=== PATIENT | female | born 1960 | race African-American/Black ===

== ENCOUNTER → 2016-05-26 | Outpatient (CLI) | payer OTHER | LOC: ULTRA 10:42 | DX: E04.1 Nontoxic single thyroid nodule (principal) ==

== ENCOUNTER → 2016-06-07 | Outpatient (CLI) | payer OTHER ==
--- NOTE | ~2016-06-07 | S ---
[facility] [place] [address] SURGICAL PATH RPT PROCEDURE Name: GAEL PINEDA Room #: REG [facility]..#: [id number] Admission: 06/07/16 Date of : 64 Discharge: Report #: [id number] Path Case #: [id number] PATHOLOGY REPORT COLLECTION DATE: 06/07/2016 RECEIVED DATE: 06/07/2016 SUBMITTING PHYS: Dr. Dami Ruiz OTHER PHYS: Dr. 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 (Please see comment) COMMENT: Based on the histologic examination, the differential diagnosis includes a mixed macro- and microfollicular adenomatoid nodule (dominant nodule) in a background of nodular hyperplasia, mixed follicular adenoma or a partially sampled papillary neoplasm. Focal nuclear overlapping and possible pseudoinclusions are present; however, in a single follicular group. Please note sample represents a minute portion of a larger lesion and may not be commercial sales representative. Co-review: Dr. Domenico Campbell. Please correlate clinically and follow up as indicated. The concurrent cytology ([id number]) showed findings suggestive of an adenomatoid nodule. Please see separate report for details. (IUV:csd; d/t: 06/08/2016) PATHOLOGIST: Essie Multani M.D. REPORT ELECTRONICALLY SIGNED BY: Essie Multani M.D. DATE/TIME: 06/08/2016 15:55 * * * * * * * * * * * * GROSS PATHOLOGY: The specimen is received in formalin, labeled "Gael Pineda and left thyroid bx." Received is a 0.4 x 0.4 x 0.2 cm aggregate of red-arenas and irregular soft tissue fragments. The specimen is entirely submitted in cassette A1. (TTL; 06/07/2016) [address] [address] SURGICAL PATH RPT PROCEDURE Name: GAEL PINEDA ROXANA Room #: REG CL Eda.#: [id number] Admission: 06/07/16 Date of : 64 Discharge: Report #: [id number] Path Case #: [id number] CLINICAL HISTORY: None given INITIAL CPT CODE(S): A; 76528 Professional services performed by [facility] [address], [place] [address] Technical services performed by [facility] at [address] [place] [address], [facility] [address] [place] [address]. [facility] [address] [place] [address] PHONE: [phone] DIRECTOR: Delonte Whatley M.D. * * * END OF REPORT * * *
--- NOTE | ~2016-06-07 | CNG ---
[facility] [place] [address] CYTO-NONGYN REPORT PROCEDURE Name: GAEL PINEDA Room #: REG [facility].#: [id number] Admission: 06/07/16 Date of : 64 Discharge: Report #: [id number] Path Case #: [id number] CYTOPATHOLOGY REPORT COLLECTION DATE: 06/07/2016 RECEIVED DATE: 06/07/2016 SUBMITTING PHYS: Dr. Vinod Caballero OTHER PHYS: Dr. Dami Cade CLINICAL HISTORY: ABN thyroid. See also [id number]. SPECIMEN(S) RECEIVED: A.US guided Fine needle aspiration, Left thyroid * * * * * * * * * * * * FINAL DIAGNOSIS: A. US guided Fine needle aspiration, Left thyroid: BETHESDA CATEGORY II. SPECIMEN CONSISTS OF BENIGN FOLLICULAR CELLS, MACROPHAGES, COLLOID, AND BLOOD. 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 COMMENT: Examination shows abundant watery colloid with a mixture of macrofollicles, microfollicles, as well as hemosiderin laden macrophages. Nuclear features to suggest papillary thyroid carcinoma are not identified. Scattered rare fragments of dense colloid are present on the smears. Overall findings are suggestive of a benign adenomatoid nodule. The differential diagnosis includes a mixed follicular adenoma. Please note sample represents a minute portion of a larger lesion and may not be entirely community service representative. Clinical correlation is suggested. The concurrent biopsy tissue showed a focal papillary architecture along with nuclear overlapping and a rare pseudoinclusion. Please refer to separate report ([id number]) for complete details. (IUV:csd; d/t: 06/08/2016) PATHOLOGIST: Essie Multani M.D. REPORT ELECTRONICALLY SIGNED BY: Essie Multani M.D. DATE/TIME: 06/08/2016 15:57 * * * * * * * * * * * * GROSS PATHOLOGY: A. US guided Fine needle aspiration, Left thyroid: The specimen is labeled "Gael Pineda" and consists of four fixed slides, four air dried slides. Twenty-five mL of red fluid in Cytolyt from the needle rinse is also submitted and One ThinPrep slide and a cell block were prepared from this material. (clt 06.07.2016) [address] [address] CYTO-NONGYN REPORT PROCEDURE Name: GALE PINEDA Room #: REG CL Lindsey#: [id number] Admission: 06/07/16 Date of : 64 Discharge: Report #: [id number] Path Case #: [id number] SLATE TRIMMER(S): JENNIFER Clarke([facility]) INITIAL CPT CODE(S): A; 53732, 20684 Professional services performed by [facility] at [address] , [place] [address] Technical services performed by [facility] at [address] [place] [address], [address], [place] [address]. [facility], [address] [place] [address] PHONE: [phone] DIRECTOR: Delonte Whatley M.D. * * * END OF REPORT * * *
== END | disposition home or self-care (01) ==
LOC: ULTRA 10:18
DX: D34 Benign neoplasm of thyroid gland (principal)

== ENCOUNTER 2020-03-23 12:02 | Emergency (ER) | payer OTHER ==
[~2020-03-23] VITALS: Ht 175.3 cm; Wt 127.9 kg
[~2020-03-23 12:02] MED LIST: LIPITOR10 MG PO; LOSARTAN-HCTZ1 EAC1 PO; NAPROSYN500 MG PO; NORFLEX100 MG PO; TRAMADOL 50 MG50 MG PO
[2020-03-23 12:46] LABS: URINE BILIRUBIN NEGATIVE (Negative); URINE BLOOD 1+ (Negative); URINE CLARITY CLEAR; URINE COLOR YELLOW; URINE GLUCOSE-RANDOM* NEGATIVE (Negative); URINE KETONES NEGATIVE (Negative); URINE LEUKOCYTES-REFLEX NEGATIVE (Negative); URINE NITRITE-REFLEX NEGATIVE (Negative); URINE PROTEIN (DIPSTICK) NEGATIVE (Negative); URINE SPECIFIC GRAVITY 1.025 (1.005-1.035); URINE UROBILINOGEN 0.2 E.U./dl (0.2-1.0)
[2020-03-23 13:02] LABS: ABSOLUTE NEUTROPHILS 2.3 thou/uL (1.4-8.2); BASOPHILS 0.5 % (0.0-2.0); EOSINOPHILS 0.8 % (0.0-3.0); HEMATOCRIT 43.7 % (37.0-47.0); HEMOGLOBIN 14.3 gm/dL (12.0-15.0); LYMPHOCYTES 40.1 % (24.0-44.0); MCH 30.9 pg (26.0-34.0); MCHC 32.7 g/dL (28.0-37.0); MCV 94.4 fL (80.0-100.0); PLATELET COUNT 231 thou/uL (150-400); POLYS 50.6 % (36.0-66.0); RBC 4.63 mil/uL (4.20-5.00); RDW 14.6 % (10.5-14.5); WBC 4.6 thou/uL (4.0-11.0)
[2020-03-23] MEDS ORDERED: COZAAR 50 MG TA50 MG PO (13:03)
[2020-03-23] MEDS ORDERED: HYDROCHLOROTHIA25 M2 PO (13:03)
[2020-03-23 13:09] LABS: CALCIUM 9.2 mg/dL (8.5-10.1); CREATININE 1.1 mg/dL (0.6-1.0); POTASSIUM 3.9 mmol/L (3.5-5.1)
[2020-03-23 13:10] LABS: BACTERIA-REFLEX 1-9 Few /HPF (None Seen); CASTS None Seen /LPF (None Seen); CRYSTALS None Seen /LPF (None Seen); SQUAMOUS 4-10 Moderate /LPF (0-3); URINE RBC 0-2 Rare /HPF (0-2); URINE WBC-REFLEX 0-5 Rare /HPF (0-5)
[2020-03-23 13:15] LABS: ALBUMIN 3.5 g/dL (3.4-5.0); TOTAL BILIRUBIN 0.5 mg/dL (0.2-1.0); TOTAL PROTEIN 8.1 g/dL (6.4-8.2)
[2020-03-23] MEDS ORDERED: NORCO 5-325 TA1 EAC2 PO (15:38)
[2020-03-23 15:40] VITALS: BP 134/76
== END 2020-03-23 15:40 | disposition home or self-care (01) ==
LOC: ER 12:02
PROVIDERS: Physician Assistant
DX: R10.32 Left lower quadrant pain (principal); Z90.710 Acquired absence of both cervix and uterus; Z79.899 Other long term (current) drug therapy; Z88.8 Allergy status to other drugs, medicaments and biological substances; Z90.49 Acquired absence of other specified parts of digestive tract